=== PATIENT | male | born 1955 | race Caucasian/White ===

== ENCOUNTER 2021-10-16 18:40 | Emergency (ER) | payer OTHER ==
--- NOTE | 2021-10-16 20:09 | RAD REPORT ---
EXAM DESCRIPTION: US - Extremity Venous Uni Ltd - 10/16/2021 7:57 pm CLINICAL HISTORY: PAIN Leg swelling and edema. COMPARISON: No comparisons FINDINGS: Right lower extremity venous system was interrogated with Doppler technique. Normal flow, compressibility and augmentation was noted. There is no DVT present. IMPRESSION: No evidence of right lower extremity deep venous thrombosis.
--- NOTE | 2021-10-16 20:52 | ER ---
Nurse's Notes [facility] Name: Babatunde Neff Age: 66 yrs Sex: Male : 1955 Arrival Date: 10/16/2021 Time: 18:45 Bed 10 Private MD: Manju Conti Diagnosis: Strain of other specified muscles, fascia and tendons at thigh level, right thigh Presentation: 10/16 18:53 Chief complaint: Patient states: "I thought I pulled my right groin because I was aa5 having pain and now is traveling down my right leg". Redness noted to right thigh. Symptoms began approximately 2 days ago after working in the yard. Coronavirus screen: At this time, the client does not indicate any symptoms associated with coronavirus-19. Ebola Screen: No symptoms or risks identified at this time. Initial Sepsis Screen: Does the patient meet any 2 criteria? No. Patient's initial sepsis screen is negative. Does the patient have a suspected source of infection? No. Patient's initial sepsis screen is negative. Risk Assessment: Do you want to hurt yourself or someone else? Patient reports no desire to harm self or others. Onset of symptoms was September 2021. 18:53 Acuity: HENRIQUE 3 aa5 18:53 Method Of Arrival: Ambulatory aa5 Historical: - Allergies: 18:56 Aspirin (Anaphylaxis); aa5 - PMHx: 18:56 Hypertensive disorder; Diabetes mellitus; aa5 - Immunization history:: Client reports receiving the 2nd dose of the Covid vaccine, Flu vaccine is up to date. - Social history:: Smoking status: Patient denies any tobacco usage or history of. Screenin:04 Abuse screen: Denies threats or abuse. Denies injuries from another. Nutritional ld1 screening: No deficits noted. Tuberculosis screening: No symptoms or risk factors identified. Fall Risk None identified. Assessment: 21:04 General: Appears in no apparent distress. comfortable, Behavior is calm, cooperative, ld1 appropriate for age. Pain: Complains of pain in back Pain does not radiate. Pain currently is 8 out of 10 on a pain scale. Quality of pain is described as throbbing, Pain began suddenly, Is intermittent. Neuro: Level of Consciousness is awake, alert, obeys commands, Oriented to person, place, time, situation. Respiratory: Airway is patent Respiratory effort is even, unlabored. Vital Signs: 18:57 BP 141 / 77; Pulse 73; Resp 18 S; Temp 97.7(TE); Pulse Ox 99% on R/A; Weight 113.4 kg aa5 (R); Height 6 ft. 1 in. (185.42 cm) (R); 21:04 BP 136 / 75; Pulse 70; Resp 18; Pulse Ox 100% on R/A; ld1 18:57 Body Mass Index 32.98 (113.40 kg, 185.42 cm) aa5 ED Course: 18:45 Patient arrived in ED. mr 18:45 Manju Conti MD is Private Physician. mr 18:53 Arm band placed on. aa5 18:55 Triage completed. aa5 18:58 [facility] pm1 18:58 Randall Barboza MD is Attending Physician. pm1 19:58 Extremity Venous Uni Ltd US In Process Unspecified. EDDC 20:34 Poppy Toro, KAYLA is Primary Nurse. ld1 21:04 Patient has correct armband on for positive identification. Placed in gown. Bed in low ld1 position. Call light in reach. Side rails up X2. Pulse ox on. Sitter at bedside. Door closed. Noise minimized. 21:04 No provider procedures requiring assistance completed. Patient did not have IV access ld1 during this emergency room visit. Administered Medications: No medications were administered Outcome: 20:52 Discharge ordered by MD. pm1 21:04 Discharged to home ambulatory. ld1 21:04 Condition: stable 21:04 Discharge instructions given to patient, Instructed on discharge instructions, follow up and referral plans. Demonstrated understanding of instructions, follow-up care. 21:05 Patient left the ED. ld1 Signatures: Dispatcher [employer] [facility] Marko Ashley MoralesJudith RN RN aa5 Ivrin Dodd NP [employer] pm1 Poppy Toro, KAYLA RN ld1 Corrections: (The following items were deleted from the chart) 18:55 18:53 Chief complaint: Patient states: "I thought I pulled my right groin because I was aa5 having pain and now is traveling down my right leg". Redness noted to right thigh. aa5
--- NOTE | 2021-10-16 20:52 | EDPHYS ---
Physician Documentation [facility] Name: Babatunde Neff Age: 66 yrs Sex: Male : 1955 Arrival Date: 10/16/2021 Time: 18:45 Bed 10 Private MD: Manju Conti ED Physician Randall Barboza HPI: 10/16 19:55 This 66 yrs old Male presents to ER via Ambulatory with complaints of Leg Swelling. pm1 19:55 The patient presents with pain, that is acute. The complaints affect the medial aspect pm1 of right thigh. Context: The problem was sustained at home, resulted from Possibly from doing yard work 2 days ago, the patient can fully bear weight, the patient is able to ambulate, Problem is a result from a previous injury: No. Onset: The symptoms/episode began/occurred 2 day(s) ago. Modifying factors: The symptoms are alleviated by remaining still, the symptoms are aggravated by movement. Associated signs and symptoms: Pertinent positives: Redness to skin medial aspect just proximal to right knee, Pertinent negatives calf tenderness, fever. Treatment prior to arrival includes: no previous treatment. Severity of symptoms: in the emergency department the symptoms are actually worse. The patient has not experienced similar symptoms in the past. The patient has not recently seen a physician. Patient presenting to the ER with concerns for possible blood clot to right lower extremity. Patient was working on the yard 2 days ago and believes that he had pulled a groin muscle. Pain is present to the medial aspect of right leg and thigh area. Historical: - Allergies: 18:56 Aspirin (Anaphylaxis); aa5 - PMHx: 18:56 Hypertensive disorder; Diabetes mellitus; aa5 - Immunization history:: Client reports receiving the 2nd dose of the Covid vaccine, Flu vaccine is up to date. - Social history:: Smoking status: Patient denies any tobacco usage or history of. ROS: 19:55 Constitutional: Negative for fever, chills, and weight loss, Eyes: Negative for injury, pm1 pain, redness, and discharge, ENT: Negative for injury, pain, and discharge, Cardiovascular: Negative for chest pain, palpitations, and edema, Respiratory: Negative for shortness of breath, cough, wheezing, and pleuritic chest pain, Abdomen/GI: Negative for abdominal pain, nausea, vomiting, diarrhea, and constipation, Back: Negative for injury and pain. 19:55 Neuro: Negative for headache, weakness, numbness, tingling, and seizure. 19:55 MS/extremity: Positive for pain, of the medial aspect of right thigh, Negative for decreased range of motion, deformity. 19:55 Skin: Positive for of the distal medial aspect of right thigh. 19:55 All other systems are negative. Exam: 19:55 Constitutional: This is a well developed, well nourished patient who is awake, alert, pm1 and in no acute distress. Head/Face: Normocephalic, atraumatic. 19:55 Eyes: Exam is negative for acute changes, Conjunctiva: no acute changes, no injection. 19:55 ENT: Exam is negative for acute changes, Mouth: no acute changes, Lips: normal, moist, Oral mucosa: normal, pink and intact, moist. 19:55 Cardiovascular: Exam negative for acute changes, Rate: normal, Rhythm: regular, Pulses: no pulse deficits are appreciated. 19:55 Respiratory: Exam negative for acute changes, respiratory distress, shortness of breath. 19:55 Skin: Appearance: normal except for affected area, lesion(s), probable a wheal is noted, located on the medial aspect of right thigh. 19:55 Neuro: Exam negative for acute changes, Orientation: is normal, Mentation: is normal, Motor: moves all fours. Vital Signs: 18:57 BP 141 / 77; Pulse 73; Resp 18 S; Temp 97.7(TE); Pulse Ox 99% on R/A; Weight 113.4 kg aa5 (R); Height 6 ft. 1 in. (185.42 cm) (R); 21:04 BP 136 / 75; Pulse 70; Resp 18; Pulse Ox 100% on R/A; ld1 18:57 Body Mass Index 32.98 (113.40 kg, 185.42 cm) aa5 MDM: 19:01 Data reviewed: vital signs. Data interpreted: Pulse oximetry: on room air is 99 %. pm1 Interpretation: normal. 19:02 Patient medically screened. pm1 20:51 Counseling: I had a detailed discussion with the patient and/or guardian regarding: the pm1 historical points, exam findings, and any diagnostic results supporting the discharge/admit diagnosis, radiology results, the need for outpatient follow up, to return to the emergency department if symptoms worsen or persist or if there are any questions or concerns that arise at home. 10/16 19:00 Order name: Extremity Venous Uni Ltd US; Complete Time: 20:19 pm1 Administered Medications: No medications were administered Disposition: 19:10 Co-signature as Attending Physician, Randall Barboza MD I agree with the assessment and kdr plan of care. Disposition Summary: 10/16/21 20:52 Discharge Ordered Location: Home pm1 Problem: new pm1 Symptoms: have improved pm1 Condition: Stable pm1 Diagnosis - Strain of other specified muscles, fascia and tendons at thigh level, right thigh pm1 Followup: pm1 - With: Emergency Department - When: As needed - Reason: Worsening of condition Followup: pm1 - With: Private Physician - When: 2 - 3 days - Reason: Recheck today's complaints, Continuance of care, Re-evaluation by your physician Discharge Instructions: - Discharge Summary Sheet pm1 - Muscle Strain pm1 Forms: - Medication Reconciliation Form pm1 - Thank You Letter pm1 - Antibiotic Education pm1 - Prescription Opioid Use pm1 Signatures: Dispatcher [employer] EDRandall Baldwin MD MD [facility] Judith Morales RN RN aa5 Irvin Dodd NP [employer] DRIVER pm1
[2021-10-16 21:19] VITALS: TEMP 97.7
[2021-10-16 21:21] VITALS: BP 136/75; O2SAT 100
--- OUTSIDE RECORDS SUMMARY | 2021-10-17 00:28 | XMS REPORT | Continuity of Care Document ---
:1955 Author Organization [facility] t Address [address] [place] [address] Care Team Providers Name Role Phone DARIN LUONG Primary Care Physician Unavailable Ge Luong Attending Clinician Unavailable Jasbir COVINGTON Attending Clinician Unavailable Payers Payer Name Policy Type Policy Number Effective Date Expiration Date S mackenzie TATE O [id number] 2011 00:00:00 Problems This patient has no known problems. Allergies, Adverse Reactions, Alerts Allergy Allergy Status Severity Reaction(s) Onset Inactive Treating Comm ents Source Name Type Date Date Clinician LISINOPR DRUG Active SOB 2016-07 [facility] [place] [facility] 0-[facility] of 00:00: [address] ASPIRIN DRUG Active Anaphylaxis [facility] ers [facility]GR[facility]I 1-11 ity of 00:00: [address] CODEINE DRUG Active Rash [facility]I 1-11 ity of 00:00: [address] Medications This patient has no known medications. Procedures This patient has no known procedures. Encounters Start End Encounter Admission Attending Care Care Encounter Source Date/Time Date/Time Type Type Clinicians Facility Department ID 2021-08-23 Out[facility] [address] 14:28:57 [id number] 2021-08-23 Out[facility] Lu[facility] [address] 14:28:03 [id number] [facility] 2021-08-23 Out[facility] [address] 12[facility]44:51 [id number] [facility] 2021-08-23 [facility] [address] 12:42:35 [id number] [facility] 2021-08-23 Outpatient Luong, Na [facility] [id number] 12:20:40 [id number] [facility] 2021-08-23 Outpatient Luong, Na [facility] [id number] 12:12:08 [id number] [facility] 2021-08-23 Outpatient Luong, Na [facility]LC [facility] [id number] 12:05:12 [id number] [facility] 2020-11-05 2020-11-05 Outpatient [facility] [id number] [facility] 09:15:00 09:15:00 [facility] 2020-10-15 2020-10-15 Outpatient Arcelia COVINGTON [facility] [id number] [facility] 09:10:00 09:10:00 KODY [facility] Results This patient has no known results.
== END 2021-10-16 21:05 | disposition home or self-care (01) ==
LOC: ER 18:40
DX: S76.811A Strain of other specified muscles, fascia and tendons at thigh level, right thigh, initial encounter (principal); E11.9 Type 2 diabetes mellitus without complications; I10 Essential (primary) hypertension; Z88.6 Allergy status to analgesic agent
CPT/HCPCS: 93971; 99284

== ENCOUNTER 2022-01-26 11:35 | Emergency (ER) | payer OTHER ==
[2022-01-26 12:27] LABS: Urine Blood Negative (Negative); Urine Glucose 3+ (Negative); Urine Protein Negative (Negative); Urine Specific Gravity 1.015 (1.005-1.030); Urine pH 5.5 (5.0-7.0)
--- NOTE | 2022-01-26 14:34 | RAD REPORT ---
EXAM DESCRIPTION: US - Scrotum Testicles - 01/26/2022 1:43 pm CLINICAL HISTORY: Testicular pain COMPARISON: None FINDINGS: Right testicle measures 3.6 x 2.5 x 3.2 centimeters. Echotexture is homogeneous. Normal bl ood flow Left testicle measures 3.9 x 1.8 x 3.3 centimeters. Echotexture is homogeneous. Normal blood flow The epididymides are normal in size and echotexture. Normal blood flow is seen. IMPRESSION: Unremarkable exam
--- NOTE | 2022-01-26 17:50 | RAD REPORT ---
EXAM DESCRIPTION: CT - Stone Protocol - 01/26/2022 5:34 pm CLINICAL HISTORY: Abdominal pain. Right groin pain COMPARISON: 2015 TECHNIQUE: Computed axial tomography of the abdomen pelvis was obtained without oral or IV contrast. Lack of IV and oral contrast limits evaluation of solid organs, appendix, bowel, and vessels. Alcaraz l reformatted images were obtained and reviewed. All CT scans are performed using dose optimization technique as appropriate and may include automated exposure control or mA/KV adjustment according to patient size. FINDINGS: 2 millimeter calculus left kidney. Hydronephrosis. A right renal calculus is not seen. . A n ureteral calculus is not noted. A bladder calculus is not present. A 3.5 centimeter low-density mass left kidney. This is nonspecific without IV contrast but probably r epresents a cyst. 3 centimeter parapelvic cyst right kidney. Liver, spleen , pancreas and adrenals appear grossly normal There is no evidence of diverticulitis. 1 centimeter skin lesion anterior right thigh. This is visible and should be correlated clinically IMPRESSION: 2 millimeter nonobstructing left renal calculus 1 centimeter skin lesion anterior right thigh. This is visible and should be correlated clinically
--- NOTE | 2022-01-26 18:07 | ER ---
Nurse's Notes [facility] Name: Babatunde Neff Age: 66 yrs Sex: Male : 1955 Arrival Date: 01/26/2022 Time: 11:37 Bed 14 Private MD: Manju Conti Diagnosis: Right groin pain Presentation: 01/26 12:12 Chief complaint: Patient states: Groin pain that began about a week ago and noticed vg1 pain gradually moving toward Right testicle. States Right testicle 'seems to be swollen', denies discharge, burning upon urination or blood in urine. Coronavirus screen: Vaccine status: Patient reports receiving the 2nd dose of the covid vaccine. Client denies travel out of the [place] in the last 14 days. Ebola Screen: Patient denies exposure to infectious person. Patient denies travel to an Ebola-affected area in the 21 days before illness onset. Initial Sepsis Screen: Does the patient meet any 2 criteria? No. Patient's initial sepsis screen is negative. Does the patient have a suspected source of infection? No. Patient's initial sepsis screen is negative. Risk Assessment: Do you want to hurt yourself or someone else? Patient reports no desire to harm self or others. Onset of symptoms was January 19, 2022. 12:12 Method Of Arrival: Ambulatory vg1 12:12 Acuity: HENRIQUE 3 vg1 Triage Assessment: 12:14 General: Appears uncomfortable, Behavior is calm, cooperative. Pain: Complains of pain vg1 in groin, right femoral area and right inguinal area Pain currently is 3 out of 10 on a pain scale. GI: Reports. Historical: - Allergies: 12:14 Aspirin (Anaphylaxis); vg1 12:14 Lisinopril; vg1 12:14 NSAIDS; vg1 - PMHx: 12:14 diabetes mellitus; Hypertensive disorder; vg1 - Immunization history:: Client reports receiving the 2nd dose of the Covid vaccine. - Social history:: Smoking status: Patient reports use of chewing tobacco. Screenin:19 Abuse screen: Denies threats or abuse. Nutritional screening: No deficits noted. bh1 Tuberculosis screening: No symptoms or risk factors identified. Fall Risk None identified. Assessment: 12:19 Reassessment: No changes from previously documented assessment. General: Appears in no 1 apparent distress. uncomfortable, Behavior is calm, cooperative, appropriate for age. : No deficits noted. 18:17 GI: Bowel sounds present X 4 quads. Abd is soft and non tender X 4 quads. bh1 Vital Signs: 12:12 BP 157 / 86; Pulse 68; Resp 16; Temp 97.8; Pulse Ox 100% ; Weight 117.93 kg; Height 6 vg1 ft. 1 in. (185.42 cm); Pain 3/10; 12:34 BP 163 / 95; Pulse 88; Resp 18; Pulse Ox 98% on R/A; bh1 13:52 BP 151 / 79; Pulse 78; Resp 18; Pulse Ox 98% on R/A; bh1 15:16 BP 139 / 75; Pulse 88; Resp 18; Pulse Ox 96% on R/A; bh1 16:31 BP 110 / 67; Pulse 89; Resp 18; Pulse Ox 94% on R/A; bh1 17:35 BP 135 / 75; Pulse 60; Resp 18; Pulse Ox 95% on R/A; bh1 18:17 BP 128 / 76; Pulse 68; Resp 18; Temp 98.3(O); Pulse Ox 100% on R/A; bh1 12:12 Body Mass Index 34.30 (117.93 kg, 185.42 cm) vg1 ED Course: 11:37 Patient arrived in ED. rg4 11:37 Manju Conti MD is Private Physician. rg4 11:37 Randall Barboza MD is Attending Physician. kdr 12:14 Triage completed. vg1 12:14 Arm band placed on. vg1 12:18 Nicolette Lewis, KAYLA is Primary Nurse. bh1 12:19 No apparent distress. Awaiting ED provider evaluation. bh1 12:19 Patient has correct armband on for positive identification. Placed in gown. Bed in low bh1 position. Call light in reach. Side rails up X 1. Pulse ox on. NIBP on. 12:19 No provider procedures requiring assistance completed. Patient did not have IV access bh1 during this emergency room visit. 12:50 Patient taken to ultrasound. bh1 13:44 US Scrotum Testicles In Process Unspecified. EDMS 13:52 No apparent distress. Resting quietly. Awaiting radiology results. bh1 15:17 No apparent distress. Resting quietly. Awaiting lab results, Awaiting radiology results.[facility] 16:32 No apparent distress. Resting quietly. Awaiting lab results, Awaiting radiology results.[facility] 17:[address] [facility] 17:36 CT Stone Protocol In Process Unspecified. EDNC 18:06 Manju Conti MD is Referral Physician. [facility] Administered Medications: No medications were administered Medication: 12:19 VIS not applicable for this client. [facility] Outcome: 18:07 Discharge ordered by . kdr 18:16 Discharged to home ambulatory. [facility] 18:16 Condition: good 18:16 Discharge instructions given to patient, Instructed on discharge instructions, follow up and referral plans. Demonstrated understanding of instructions, follow-up care. 18:17 Patient left the ED. [facility] Signatures: Dispatcher [employer] EDNC Randall Barboza MD MD kdr Garcia, Rubi rg4 Brissa De Leon, RN RN 1 Nicolette Lewis, RN RN [facility] Corrections: (The following items were deleted from the chart) 13:02 12:[address] [place] [id number]
--- NOTE | 2022-01-26 18:07 | EDPHYS ---
Physician Documentation [facility] Name: Babatunde Neff Age: 66 yrs Sex: Male : 1955 Arrival Date: 01/26/2022 Time: 11:37 Bed 14 Private MD: Manju Conti ED Physician Randall Barboza Historical: - Allergies: 01/26 12:14 Aspirin (Anaphylaxis); vg1 12:14 Lisinopril; vg1 12:14 NSAIDS; vg1 - PMHx: 12:14 diabetes mellitus; Hypertensive disorder; vg1 - Immunization history:: Client reports receiving the 2nd dose of the Covid vaccine. - Social history:: Smoking status: Patient reports use of chewing tobacco. Vital Signs: 12:12 BP 157 / 86; Pulse 68; Resp 16; Temp 97.8; Pulse Ox 100% ; Weight 117.93 kg; Height 6 vg1 ft. 1 in. (185.42 cm); Pain 3/10; 12:34 BP 163 / 95; Pulse 88; Resp 18; Pulse Ox 98% on R/A; bh1 13:52 BP 151 / 79; Pulse 78; Resp 18; Pulse Ox 98% on R/A; bh1 15:16 BP 139 / 75; Pulse 88; Resp 18; Pulse Ox 96% on R/A; bh1 16:31 BP 110 / 67; Pulse 89; Resp 18; Pulse Ox 94% on R/A; bh1 17:35 BP 135 / 75; Pulse 60; Resp 18; Pulse Ox 95% on R/A; bh1 18:17 BP 128 / 76; Pulse 68; Resp 18; Temp 98.3(O); Pulse Ox 100% on R/A; bh1 12:12 Body Mass Index 34.30 (117.93 kg, 185.42 cm) vg1 MDM: 18:07 Patient medically screened. kdr 01/26 12:27 Order name: Urine Dipstick-Ancillary; Complete Time: 12:34 EDMS 01/26 12:34 Order name: US Scrotum Testicles; Complete Time: 15:43 kdr 01/26 15:56 Order name: CT Stone Protocol; Complete Time: 17:59 kdr Administered Medications: No medications were administered Disposition Summary: 01/26/22 18:07 Discharge Ordered Location: Home kdr Problem: an ongoing problem kdr Symptoms: are unchanged kdr Condition: Stable kdr Diagnosis - Right groin pain kdr Followup: kdr - With: Manju Conti MD - When: 2 - 3 days - Reason: If symptoms return, Further diagnostic work-up, Recheck today's complaints, Continuance of care, Re-evaluation by your physician Discharge Instructions: - Discharge Summary Sheet kdr - Myofascial Pain Syndrome and Fibromyalgia kdr - Muscle Strain, [id number] kdr Forms: - Medication Reconciliation Form kdr - Thank You Letter kdr Signatures: Dispatcher [employer] Randall Haile MD MD kdr Brissa De Leon RN RN vg1
[2022-01-26 18:33] VITALS: BP 128/76; TEMP 98.3; O2SAT 100
== END 2022-01-26 18:17 | disposition home or self-care (01) ==
LOC: ER 11:35
DX: R10.31 Right lower quadrant pain (principal); N50.811 Right testicular pain; E11.9 Type 2 diabetes mellitus without complications; I10 Essential (primary) hypertension; F17.220 Nicotine dependence, chewing tobacco, uncomplicated; Z88.6 Allergy status to analgesic agent; Z88.8 Allergy status to other drugs, medicaments and biological substances
CPT/HCPCS: 74176; 76377; 76870; 81003; 99284